=== PATIENT | male | born 1955 | race Caucasian/White ===

== ENCOUNTER 2017-01-01 10:19 | Inpatient (IN) | payer OTHER, MEDICAID ==
[~2017-01-01] VITALS: Ht 170.2 cm; Wt 65.3 kg
[~2017-01-01 10:19] MED LIST: ASPI-664 PO; CYCL-319 PO; METF-382 PO
[2017-01-01] MEDS ORDERED: NITROGLYCERIN 2% 1 GM OINT PKT TD STA (10:49)
[2017-01-01] MEDS ORDERED: GEMF600T60 PO (10:58)
[2017-01-01] MEDS ORDERED: ONDANSETRON 4 MG INJ IV STA (11:00)
[2017-01-01] MEDS ORDERED: NITROGLYCERIN (SL) 0.4 MG TAB SL PRN (11:00)
[2017-01-01] MEDS ORDERED: SOD CHLORIDE 0.9% 1,000 ML IV STA (11:00)
[2017-01-01] MEDS ORDERED: morphine 4 MG/ML VIAL IV STA (11:00)
[2017-01-01 11:23] LABS: BASOPHIL # 0.1 10^3/ul (0.0-0.1); BASOPHILS % 0.9 % (0.0-2.0); EOSINOPHILS # 0.3 10^3/ul (0.0-0.5); EOSINOPHILS % 3.6 % (0.0-7.0); HEMATOCRIT 46.2 % (42.0-52.0); HEMOGLOBIN 15.9 g/dl (14.0-18.0); LYMPHOCYTES # 2.7 10^3/ul (0.8-2.9); LYMPHOCYTES % 38.2 % (15.0-51.0); MEAN CORPUSCULAR HEMOGLOBIN 31.9 pg (29.0-33.0); MEAN CORPUSCULAR HGB CONC 34.4 g/dl (32.0-37.0); MEAN CORPUSCULAR VOLUME 92.6 fl (82.0-101.0); MEAN PLATELET VOLUME 9.5 fl (7.4-10.4); MONOCYTE # 0.5 10^3/ul (0.3-0.9); MONOCYTES % 7.3 % (0.0-11.0); NEUTROPHIL # 3.5 10^3/ul (1.6-7.5); NEUTROPHILS % 49.4 % (39.0-77.0); PLATELET COUNT 293 10^3/UL (140-415); RED BLOOD COUNT 4.99 10^6/ul (4.70-6.10); RED CELL DISTRIBUTION WIDTH 11.9 % (11.5-14.5)
[2017-01-01 11:30] LABS: CHLORIDE 102 mmol/L (97-110); INR 1.01; PROTIME 13.3 Sec (12.2-14.2); SODIUM 142 mmol/L (135-144)
[2017-01-01 11:31] LABS: POTASSIUM 4.2 mmol/L (3.5-5.1)
[2017-01-01 11:32] LABS: PARTIAL THROMBOPLASTIN TIME 31.5 Sec (25.0-35.0)
[2017-01-01 11:33] LABS: CREATININE 0.74 mg/dl (0.61-1.24)
[2017-01-01 11:34] LABS: ANION GAP 17 (8-16); BLOOD UREA NITROGEN 19 mg/dl (7-20); CALCIUM 9.6 mg/dl (8.4-10.2); CARBON DIOXIDE 27 mmol/L (21-31); GLUCOSE 104 mg/dl (70-220)
[2017-01-01 11:57] LABS: TROPONIN-I < 0.012 ng/ml (0.00-0.12)
--- NOTE | 2017-01-01 12:06 | RADRPT ---
PROCEDURE: XR Chest. CLINICAL INDICATION: Chest pain TECHNIQUE: Single frontal chest x-ray. COMPARISON: 07/07/2016 FINDINGS: No acute infiltrate, pleural effusion or pneumothorax is identified. Cardiomediastinal silhouette i s within normal limits. Aortic atherosclerotic calcification is noted. The osseous structures are remarkable for degenerative spondylosis of the spine. IMPRESSION: 1. No evidence of acute cardiopulmonary process. 2. Aortic atherosclerosis. RPTAT: QQ .Garrett Tim MD, MD Date Time Electronically viewed and signed by .Garrett Tim MD, MD on 01/01/2017 12:06 .R/
[2017-01-01] MEDS ORDERED: SOD CHLORIDE 0.9% 100 ML ONE (12:23)
[2017-01-01] MEDS ORDERED: IODIXANOL LOCM 100 ML BTL ONE (12:23)
[2017-01-01] MEDS ORDERED: IODIXANOL LOCM 50 ML BTL ONE (12:23)
--- NOTE | 2017-01-01 12:55 | RADRPT ---
PROCEDURE: CT angiogram of the chest with contrast. CLINICAL INDICATION: cp radiating to back, r/o dissection TECHNIQUE: CT scan of the chest with contrast was performed on a multidetector high-resolution CT scan. The patient was scanned following the uncomplicated intravenous administration of 115 ml of V isipaque 320. Coronal and sagittal reformatted images were obtained from the axial source images. [facility] chest with contrast protocols were performed. The total exam CTDI equals 13.43 mGy and the total exam DLP equals 514.61 mGy-cm. One or more of the following dose reduction techniques were used: - Automated exposure control. - Adjustment of the mA and/or kV according to patient size. Use of iterative reconstruction technique. COMPARISON: None. FINDINGS: There is mild atherosclerotic vascular disease of the aortic arch in mid to proximal abdominal aorta . No evidence of aortic dissection or aneurysm. There is mild atherosclerotic vascular disease of the proximal right subclavian artery and origin of the left common carotid artery. New the right le ft subclavian arteries are unremarkable. And proximal right and left vertebral arteries and brachia l cephalic artery are unremarkable. The central pulmonary arteries are unremarkable. There is no e vidence of central pulmonary emboli. The origin of the celiac axis and SMA are unremarkable. There is mild hard atherosclerotic plaque involving the proximal aspects of the right left renal arteries . No hemodynamically significant stenoses NASCET criteria. The heart is within normal limits in si ze without pericardial effusion. There is no evidence of pleural effusions or pneumothoraces. No e vidence of mediastinal hilar or axillary lymphadenopathy. There is mild dependent atelectasis. There is no evidence of acute lung infiltrates. No evidence of pulmonary nodules bilaterally. Imag es of the upper abdomen are unremarkable. The mild degenerative changes lower cervical and thoracic spine. IMPRESSION: 1. Atherosclerotic vascular disease as described above without evidence of aortic aneurysm or disse ction. No evidence of hemodynamically significant stenosis, NASCET criteria. 2. No central pulmonary emboli. 3. No evidence of thoracic effusions or acute infiltrates. 4. No evidence of thoracic lymphadenopathy. RPTAT:AAJJ B Ross, Physician Date Time Electronically viewed and signed by Zari Ross Physician on 01/01/2017 12:55 BM/
[2017-01-01] MEDS ORDERED: ONDANSETRON 4 MG INJ IV PRN (13:30)
--- NOTE | 2017-01-01 14:49 | ERA ---
ER Documentation Chief Complaint Date/Time DATE: 01/01/17 TIME: 14:47 Chief Complaint BIB RA FOR EVAL OF CP STARTED THIS AM. HPI Patient is a 61-year-old male with diabetes and hypertension who presents with chest pain. The patient said that he woke up today and was eating breakfast and had chest pain. He was brought in by ambulance. He had shortness of breath and palpitations as well. He had pain radiating to his back. He did see his network security consultant back in August. He was given 2 baby aspirin by paramedics. He had left-sided chest pain with radiation to his back. Upon review of old medical records this is the patient's seventh visit to the ER since 2007. ROS All systems reviewed and are negative except as per history of present illness. 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) Hx Respiratory Disorders: No Hx Cardiac Disorders: Yes (hypercholesterolemia) Hx Psychiatric Problems: Yes (ETOH abuse ) Hx Miscellaneous Medical Probl: Yes (CERVICAL STENOSIS, DM) Hx Alcohol Use: No Hx Substance Use: No Hx Tobacco Use: No Smoking Status: Former smoker FmHx Family History: No coronary disease Physical Exam Vitals Vital Signs Date Time Temp Pulse Resp B/P Pulse Ox O2 Delivery O2 Flow Rate FiO2 01/01/17 14:25 83 16 111/73 Room Air 01/01/17 13:00 98.6 84 20 118/79 98 01/01/17 11:20 98.6 87 18 147/98 96 01/01/17 10:45 Nasal Cannula 2 01/01/17 10:37 98.0 86 18 171/119 99 Physical Exam Const: No acute distress Head: Atraumatic Eyes: Normal Conjunctiva ENT: Normal External Ears, Nose and Mouth. Neck: Full range of motion..~ No meningismus. Resp: Clear to auscultation bilaterally Cardio: Regular rate and rhythm, no murmurs Abd: Soft, non tender, non distended. Normal bowel sounds Skin: No petechiae or rashes Back: No midline or flank tenderness Ext: No cyanosis, or edema Neur: Awake and alert Psych: Normal Mood and Affect Result Diagram: 01/01/17 1100 01/01/17 1100 Results 24 hrs Laboratory Tests Test 01/01/17 11:00 Activated Partial Thromboplast Time 31.5Sec Anion Gap 17 Basophils # 0.110^3/ul Basophils % 0.9% Blood Urea Nitrogen 19mg/dl Calcium Level 9.6mg/dl Carbon Dioxide Level 27mmol/L Chloride Level 102mmol/L Creatinine 0.74mg/dl Eosinophils # 0.310^3/ul Eosinophils % 3.6% Glucose Level 104mg/dl Hematocrit 46.2% Hemoglobin 15.9g/dl INR International Normalized Ratio 1.01 Lymphocytes # 2.710^3/ul Lymphocytes % 38.2% Mean Corpuscular Hemoglobin 31.9pg Mean Corpuscular Hemoglobin Concent 34.4g/dl Mean Corpuscular Volume 92.6fl Mean Platelet Volume 9.5fl Monocytes # 0.510^3/ul Monocytes % 7.3% Neutrophils # 3.510^3/ul Neutrophils % 49.4% Nucleated Red Blood Cells # 0.010^3/ul Nucleated Red Blood Cells % 0.0/100WBC Platelet Count 01494^3/UL Potassium Level 4.2mmol/L Prothrombin Time 13.3Sec Prothrombin Time Ratio 1.0 Red Blood Count 4.9910^6/ul Red Cell Distribution Width 11.9% Sodium Level 142mmol/L Troponin I < 0.012ng/ml White Blood Count 7.010^3/ul Current Medications Medications (Trade) Dose Ordered Sig/Jazmin Route PRN Reason Start Time Stop Time Status Last Admin Dose Admin Nitroglycerin (Nitroglycerin 2% Oint) 1 inch ONCE STAT TD 01/01/17 10:49 01/01/17 10:50 DC 01/01/17 11:03 Nitroglycerin 1 tab 1 tab Q5M UP TO 3 DOSES PRN SL CHEST PAIN 01/01/17 11:00 Sodium Chloride (NS) 1,000 ml @ 1,000 mls/hr Q1H STAT IV 01/01/17 11:00 01/01/17 11:59 DC 01/01/17 11:03 Morphine Sulfate (morphine) 4 mg ONCE STAT IV 01/01/17 11:00 01/01/17 11:01 DC Ondansetron HCl (Zofran Inj) 4 mg ONCE STAT IV 01/01/17 11:00 01/01/17 11:01 DC IV Flush 10 ml 10 ml STK-MED ONCE .ROUTE 01/01/17 12:23 01/01/17 12:24 DC Sodium Chloride (NS) 100 ml @ ud STK-MED ONCE .ROUTE 01/01/17 12:23 01/01/17 12:24 DC Iodixanol (Visipaque Locm) 100 ml STK-MED ONCE .ROUTE 01/01/17 12:23 01/01/17 12:24 DC Iodixanol (Visipaque Locm) 50 ml STK-MED ONCE .ROUTE 01/01/17 12:23 01/01/17 12:24 DC Ondansetron HCl (Zofran Inj) 4 mg ER BRIDGE PRN IV NAUSEA AND/OR VOMITING 01/01/17 13:30 01/02/17 13:29 Acetaminophen (Tylenol Tab) 650 mg ER BRIDGE PRN PO MILD PAIN/FEVER 01/01/17 13:30 01/02/17 13:29 Procedures/MDM EKG #1 read by me: Rate/Rhythm: Regular rate and rhythm at a normal rate Intervals: Normal Impression: No evidence of ischemia or arrhythmia EKG #[address] at this [address] CT chest negative for dissection or pulmonary embolism per radiology. Chest x- ray shows no pneumonia per radiology. Patient is a 61-year-old male with cardiac risk factors who presents with chest pain. At this point I doubt pulmonary embolism, aortic dissection, pneumonia, or pneumothorax. However I am concerned for acute coronary syndrome. I spoke with Dr. Bautista for admission to a telemetry bed as the patient has [employer] insurance and Dr. Bautista is admitting for [employer]. The patient already received aspirin by paramedics and will be given nitroglycerin and morphine in the emergency department. He was also given 1 L of normal saline for fluid resuscitation. Departure Diagnosis: Primary Impression: Chest pain Qualified Code: R07.9 - Chest pain, unspecified type Condition: STEPHNAIE Preston MD Jan 01, 2017 14:49
[2017-01-01] MEDS ORDERED: LORAZEPAM 0.5 MG TAB PO PRN (16:30)
[2017-01-01] MEDS ORDERED: ONDANSETRON 4 MG TAB PO PRN (16:30)
[2017-01-01] MEDS ORDERED: DOCUSATE SODIUM 100 MG CAP PO PRN (16:30)
[2017-01-01] MEDS ORDERED: NACL 0.9% 3 ML SYG IV SCH (16:30)
[2017-01-01] MEDS ORDERED: morphine 2 MG INJ IV PRN (16:30)
--- NOTE | 2017-01-01 16:38 | PN ---
Date/Time of Note Date/Time of Note DATE: 01/01/17 TIME: 16:30 Assessment/Plan VTE Prophylaxis VTE Prophylaxis Intervention: LMWH Lines/Catheters IV Catheter Type (from Nrs): Saline Lock Assessment/Plan Chief Complaint/Hosp Course ASSESSMENT AND PLAN: 1. Chest pain with a past medical history of diabetes mellitus, dyslipidemia. His first troponin was found to be negative. EKG does not show any sign of acute ischemia. No sign of ST elevation or depression. The patient has been placed on morphine, aspirin. His blood pressure is well controlled. Will follow up lipid panel. Will obtain 2D echocardiogram. 2. History of dyslipidemia. Follow lipid panel and treat accordingly. 3. Diabetes mellitus. Continue metformin, low-carbohydrate diet. 4. For deep venous thrombosis prophylaxis, on Lovenox. 5. For gastrointestinal prophylaxis, on proton pump inhibitor. Will continue to monitor patient closely. Further recommendations, management and treatment as per clinical course. Problems: Subjective 24 Hr Interval Summary Free Text/Dictation This is a 61-year-old gentleman past medical history of diabetes mellitus hypertension home presents develop respiratory emergency of having chest discomfort. The pain was in anterior chest area and occurred while he was eating breakfast. He called 911 and he was brought into the emergency room [facility] via EMS after he was treated with [id number] mg . He states that the chest pain was accompanied by shortness of breath and palpitation. The pain 8/10 was in the anterior chest radiating to his back which improved minimally status post aspirin treatment. Patient has been admitted to [facility] in the past and had a Lexiscan stress test which was negative for ischemia although he states that this pain very uncomfortable therefore he called 911 as brought into the emergency room. ROS: Const: Negative for fever, chills, weight gain or weight loss, fatigue, or diaphoresis Eyes : No pain discharge or redness or change in visual acuity ENT: No pain, sore throat, congestion, congestion, dysphagia or discharge Respiratory: No shortness of breath, cough, sputum, wheezing, or pleuritic pain Cardiovascular: Minimal chest pain, palpitation, PND, or edema GI : no change in appetite, abdominal pain, nausea, vomiting, diarrhea, constipation, or change in the color his stool Genitourinary: No dysuria, hematuria, flank pain , discharge or CVA tenderness Musculoskeletal: No joint pain, back pain, neck pain, restricted range of motion in neck or joints Skin: No rash, bruising or hives Neuro: No headache, dizziness, syncope, seizure, focal weakness Endocrine: No polyuria, polydipsia, temperature intolerance Psych: No hallucination, depression, anxiety or suicidal ideation Exam/Review of Systems Vital Signs Vitals Vital Signs Date Time Temp Pulse Resp B/P Pulse Ox O2 Delivery O2 Flow Rate FiO2 01/01/17 14:25 98.2 01/01/17 14:25 83 16 111/73 Room Air 01/01/17 13:00 98 01/01/17 10:45 2 Exam General: The patient is well-developed, Not in acute distress. HEENT: Atraumatic, normocephalic. The pupils are equal and round . Neck: Supple with full range of motion. Chest: Normal expansion of the thorax during inspiration Lungs: Clear to auscultation bilaterally Heart: Normal S1-S2, Regular rhythm and rate. Abdomen: Soft , nontender, nondistended , bowel sounds are present. Extremities: Normal to inspection, no edema no cyanosis Neurologic: Normal mental status,The patient is awake, alert and oriented . Results Result Diagram: 01/01/17 1100 01/01/17 1100 Results 24 hrs Laboratory Tests Test 01/01/17 11:00 Activated Partial Thromboplast Time 31.5 Anion Gap 17 H Basophils # 0.1 Basophils % 0.9 Blood Urea Nitrogen 19 Calcium Level 9.6 Carbon Dioxide Level 27 Chloride Level 102 Creatinine 0.74 Eosinophils # 0.3 Eosinophils % 3.6 Glucose Level 104 Hematocrit 46.2 Hemoglobin 15.9 INR International Normalized Ratio 1.01 Lymphocytes # 2.7 Lymphocytes % 38.2 Mean Corpuscular Hemoglobin 31.9 Mean Corpuscular Hemoglobin Concent 34.4 Mean Corpuscular Volume 92.6 Mean Platelet Volume 9.5 # Monocytes # 0.5 Monocytes % 7.3 Neutrophils # 3.5 Neutrophils % 49.4 Nucleated Red Blood Cells # 0.0 Nucleated Red Blood Cells % 0.0 Platelet Count 293 Potassium Level 4.2 Prothrombin Time 13.3 Prothrombin Time Ratio 1.0 Red Blood Count 4.99 Red Cell Distribution Width 11.9 Sodium Level 142 Troponin I < 0.012 White Blood Count 7.0 # ANNA BAUTISTA MD Jan 01, 2017 16:38
[2017-01-01 17:56] LABS: CREATINE KINASE 25 IU/L (23-200)
[2017-01-01] MEDS: metFORMIN 500 MG TAB PO SCH (18:00)
[2017-01-01 18:09] LABS: CK-MB 0.44 ng/ml (0.0-2.4); TROPONIN-I < 0.012 ng/ml (0.00-0.12)
--- NOTE | 2017-01-01 18:28 | CONS ---
Date/Time of Note Date/Time of Note DATE: 01/01/17 TIME: 18:23 Assessment/Plan Assessment/Plan Additional Assessment/Plan Back and chest pain Diabetes Preserved ejection fraction Normal cardiac perfusion study June 2016 Spinal stenosis -Patient's pain began in his left back and radiated to the chest. Pain is worse with movements and bending. Initial cardiac enzymes are negative, ECG without significant ischemic abnormalities. Patient with normal cardiac perfusion study June 2016 as well as preserved ejection fraction on echocardiogram at that time. His symptoms appear atypical for cardiac origin. Given risk factors, would obtain serial cardiac enzymes. Otherwise if remains negative, would evaluate other noncardiac causes of patient's pain. Consultation Date/Type/Reason Admit Date/Time Type of Consultation: cv Reason for Consultation Chest pain Hx of Present Illness This is a 61-year-old male with history of hypertension, diabetes, spinal stenosis who presents with back, left-sided chest pain. Patient was eating breakfast this morning, and stood up and turned around. After he did this, he developed severe left lower and mid back pain which radiated to the chest. Pain was aching and sharp in nature. Pain was so severe he became short of breath. Pain was worse with moving side to side. Because of the above, patient came to the emergency room for evaluation and care. His pain has improved but is worse when going from lying down to seated up position in the back. He denies any further chest pain. He denies exertional chest pain, shortness of breath. His activity is limited secondary to his spinal stenosis. 12 point review of systems was performed with all pertinent positives and negatives mentioned above and all else is negative Past Medical History Spinal stenosis Medical History: diabetes, hypertension Social History Smoking Status: Former smoker Exam/Review of Systems Vital Signs Vitals Vital Signs Date Time Temp Pulse Resp B/P Pulse Ox O2 Delivery O2 Flow Rate FiO2 01/01/17 14:25 98.2 01/01/17 14:25 83 16 111/73 Room Air 01/01/17 13:00 98 01/01/17 10:45 2 Exam No apparent distress Constitutional: alert, oriented Head: normocephalic Respiratory: clear to auscultation, normal air movement Cardiovascular: other (S1-S2 heard, no murmurs appreciated), regular rate and rhythm Gastrointestinal: bowel sounds, non-tender, other (No guarding), soft Musculoskeletal: other (Pain with palpation left paraspinal muscles and left flank area and anterior left chest) Extremities: other (No edema) Results Result Diagram: 01/01/17 1100 01/01/17 1100 Results 24 hrs Laboratory Tests Test 01/01/17 11:00 01/01/17 16:55 Activated Partial Thromboplast Time 31.5 Anion Gap 17 H Basophils # 0.1 Basophils % 0.9 Blood Urea Nitrogen 19 Calcium Level 9.6 Carbon Dioxide Level 27 Chloride Level 102 Creatinine 0.74 Eosinophils # 0.3 Eosinophils % 3.6 Glucose Level 104 Hematocrit 46.2 Hemoglobin 15.9 INR International Normalized Ratio 1.01 Lymphocytes # 2.7 Lymphocytes % 38.2 Mean Corpuscular Hemoglobin 31.9 Mean Corpuscular Hemoglobin Concent 34.4 Mean Corpuscular Volume 92.6 Mean Platelet Volume 9.5 # Monocytes # 0.5 Monocytes % 7.3 Neutrophils # 3.5 Neutrophils % 49.4 Nucleated Red Blood Cells # 0.0 Nucleated Red Blood Cells % 0.0 Platelet Count 293 Potassium Level 4.2 Prothrombin Time 13.3 Prothrombin Time Ratio 1.0 Red Blood Count 4.99 Red Cell Distribution Width 11.9 Sodium Level 142 Troponin I < 0.012 < 0.012 White Blood Count 7.0 # Creatine Kinase 25 Creatine Kinase Index 1.8 Creatinine Kinase MB (Mass) 0.44 Medications Medications Current Medications Lorazepam (Ativan) 0.5 mg Q8H PRN PO ANXIETY; Start 01/01/17 at 16:30 Ondansetron HCl (Zofran Tab) 4 mg Q6H PRN PO NAUSEA AND/OR VOMITING; Start 01/01 at 16:30 Aspirin (Aspirin) 81 mg DAILY PO ; Start 01/02/17 at 09:00 Morphine Sulfate (morphine) 2 mg Q4H PRN IV PAIN LEVEL 7-10; Start 01/01/17 at 16:30 Docusate Sodium (Colace) 100 mg Q12H PRN PO CONSTIPATION; Start 01/01/17 at 16: 30 Pantoprazole (Protonix Tab) 40 mg DAILY@06 PO ; Start 01/02/17 at 06:00 Enoxaparin Sodium (Lovenox) 40 mg DAILY SC ; Start 01/02/17 at 09:00 Gemfibrozil (Lopid) 600 mg BID PO ; Start 01/01/17 at 21:00 Procedures Procedures ECG demonstrates sinus rhythm at 86 bpm, QRS 84 ms, nonspecific STT wave abnormalities Sameer Ely DO Jan 01, 2017 18:28
[2017-01-01 20:00] VITALS: TEMP 98.9
[2017-01-01] MEDS: GEMFIBROZIL 600 MG TAB PO SCH (21:00)
[2017-01-01 21:37] VITALS: PULSE 67
[2017-01-01 22:38] VITALS: Ht 170.2 cm; Wt 65.3 kg
[2017-01-02] VITALS (10 sets, daily range): BP systolic 112–130; BP diastolic 69–85; PULSE 54–64; RESP 18–20
[2017-01-02] MEDS: ACETAMINOPHEN 325 MG TAB PO PRN ×2 (00:02→11:00)
[2017-01-02 00:25] LABS: CREATINE KINASE 21 IU/L (23-200)
[2017-01-02 00:38] LABS: CK-MB 0.48 ng/ml (0.0-2.4); TROPONIN-I < 0.012 ng/ml (0.00-0.12)
[2017-01-02] MEDS ORDERED: PANTOPRAZOLE (EC) 40 MG TAB PO SCH (06:00)
[2017-01-02] MEDS: metFORMIN 500 MG TAB PO SCH ×2 (08:00→15:18)
[2017-01-02] MEDS: GEMFIBROZIL 600 MG TAB PO SCH ×2 (08:15→16:37)
[2017-01-02] MEDS ORDERED: ENOXAPARIN 40 MG/0.4 ML SYG SC SCH (09:00)
[2017-01-02] MEDS ORDERED: ASPIRIN 81 MG TAB PO SCH (09:00)
[2017-01-02 09:52] LABS: ADD SCAN DIFF NO
[2017-01-02 09:54] LABS: BASOPHIL # 0.1 10^3/ul (0.0-0.1); BASOPHILS % 0.7 % (0.0-2.0); EOSINOPHILS # 0.3 10^3/ul (0.0-0.5); EOSINOPHILS % 3.4 % (0.0-7.0); HEMATOCRIT 45.2 % (42.0-52.0); HEMOGLOBIN 15.2 g/dl (14.0-18.0); LYMPHOCYTES # 2.9 10^3/ul (0.8-2.9); LYMPHOCYTES % 34.1 % (15.0-51.0); MEAN CORPUSCULAR HEMOGLOBIN 31.9 pg (29.0-33.0); MEAN CORPUSCULAR HGB CONC 33.6 g/dl (32.0-37.0); MEAN CORPUSCULAR VOLUME 94.8 fl (82.0-101.0); MEAN PLATELET VOLUME 9.2 fl (7.4-10.4); MONOCYTE # 0.6 10^3/ul (0.3-0.9); MONOCYTES % 7.3 % (0.0-11.0); NEUTROPHIL # 4.5 10^3/ul (1.6-7.5); NEUTROPHILS % 54.1 % (39.0-77.0); PLATELET COUNT 251 10^3/UL (140-415); RED BLOOD COUNT 4.77 10^6/ul (4.70-6.10); RED CELL DISTRIBUTION WIDTH 12.1 % (11.5-14.5); WHITE BLOOD COUNT 8.4 10^3/ul (4.8-10.8)
[2017-01-02 10:07] LABS: POTASSIUM 4.1 mmol/L (3.5-5.1)
[2017-01-02 10:09] LABS: CREATININE 0.72 mg/dl (0.61-1.24)
[2017-01-02 10:10] LABS: CALCIUM 9.2 mg/dl (8.4-10.2); MAGNESIUM 2.1 mg/dl (1.7-2.5)
[2017-01-02 11:09] LABS: CHOL/HDL RATIO 4.7 RATIO
--- NOTE | 2017-01-02 11:15 | CONS ---
Date/Time of Note Date/Time of Note DATE: 01/02/17 TIME: 11:14 Assessment/Plan Assessment/Plan Additional Assessment/Plan Back and chest pain Diabetes Preserved ejection fraction Normal cardiac perfusion study June 2016 Spinal stenosis -Serial cardiac enzymes have remained negative. Patient's symptoms are positional and worse with bending and moving side to side and improved with using a heat pad. CT pulmonary angiogram negative for PE. Would evaluate other causes for patient's symptoms. No further inpatient cardiac workup needed at the current time. Consultation Date/Type/Reason Admit Date/Time Jan 01, 2017 at 13:14 Initial Consult Date Type of Consultation: cv 24 HR Interval Summary Free Text/Dictation Patient still with left lower back pain, worse with bending and moving side to side. Denies shortness of breath or chest pain Exam/Review of Systems Vital Signs Vitals Vital Signs Date Time Temp Pulse Resp B/P Pulse Ox O2 Delivery O2 Flow Rate FiO2 01/02/17 08:09 58 01/02/17 07:58 97.9 19 122/77 98 01/01/17 20:00 Room Air 01/01/17 10:45 2 Intake and Output 01/01/17 01/01/17 01/02/17 15:00 23:00 07:00 Intake Total 200 ml Output Total 1100 ml Balance -1100 ml 200 ml Exam No apparent distress Constitutional: alert, oriented Head: normocephalic Neck: supple Respiratory: other (Coarse breath sounds bilaterally, no wheezing) Cardiovascular: other (S1-S2 heard), regular rate and rhythm Gastrointestinal: bowel sounds, non-tender, soft Extremities: other (No edema) Results Result Diagram: 01/02/1745 01/02/17 0945 Results 24 hrs Laboratory Tests Test 01/01/17 16:55 01/01/17 22:45 01/02/17 01:37 01/02/17 09:45 Creatine Kinase 25 21 L Creatine Kinase Index 1.8 2.3 Creatinine Kinase MB (Mass) 0.44 0.48 Troponin I < 0.012 < 0.012 Bedside Glucose 95 Anion Gap 16 Basophils # 0.1 Basophils % 0.7 Blood Urea Nitrogen 17 Calcium Level 9.2 Carbon Dioxide Level 28 Chloride Level 103 Cholesterol Level 124 Cholesterol/HDL Ratio 4.7 Creatinine 0.72 Eosinophils # 0.3 Eosinophils % 3.4 Glucose Level 133 HDL Cholesterol 26 L Hematocrit 45.2 Hemoglobin 15.2 LDL Cholesterol, Calculated 55 Lymphocytes # 2.9 Lymphocytes % 34.1 Magnesium Level 2.1 Mean Corpuscular Hemoglobin 31.9 Mean Corpuscular Hemoglobin Concent 33.6 Mean Corpuscular Volume 94.8 Mean Platelet Volume 9.2 Monocytes # 0.6 Monocytes % 7.3 Neutrophils # 4.5 Neutrophils % 54.1 Nucleated Red Blood Cells # 0.0 Nucleated Red Blood Cells % 0.0 Platelet Count 251 Potassium Level 4.1 Red Blood Count 4.77 Red Cell Distribution Width 12.1 Sodium Level 143 Thyroid Stimulating Hormone (TSH) Pending Triglycerides Level 217 H White Blood Count 8.4 Medications Medications Current Medications Lorazepam (Ativan) 0.5 mg Q8H PRN PO ANXIETY; Start 01/01/17 at 16:30 Ondansetron HCl (Zofran Tab) 4 mg Q6H PRN PO NAUSEA AND/OR VOMITING; Start 01/01 at 16:30 Aspirin (Aspirin) 81 mg DAILY PO Last administered on 01/02/17 08:14; Admin Dose 81 MG; Start 01/02/17 at 09:00 Morphine Sulfate (morphine) 2 mg Q4H PRN IV PAIN LEVEL 7-10; Start 01/01/17 at 16:30 Docusate Sodium (Colace) 100 mg Q12H PRN PO CONSTIPATION; Start 01/01/17 at 16: 30 Pantoprazole (Protonix Tab) 40 mg DAILY@06 PO Last administered on 01/02/17 06 :25; Admin Dose 40 MG; Start 01/02/17 at 06:00 Enoxaparin Sodium (Lovenox) 40 mg DAILY SC ; Start 01/02/17 at 09:00 Gemfibrozil (Lopid) 600 mg BID PO Last administered on 01/02/17 08:15; Admin Dose 600 MG; Start 01/01/17 at 21:00 Sameer Ely DO Jan 02, 2017 11:15
[2017-01-02 13:23] LABS: THYROID STIMULATING HORMONE 4.89 MIU/L (0.465-4.680)
--- NOTE | 2017-01-02 16:50 | PDOCDIS ---
Discharge Instructions CONDITION Patient Condition: Good HOME CARE INSTRUCTIONS: Special Diet: cardiac ACTIVITY: Activity Restrictions: No Restrictions FOLLOW UP/APPOINTMENTS Appointments follow up with PCP as out-pt OTHER ORDERS: Other Orders: ANNA Cruz MD Jan 02, 2017 16:50
[2017-01-02] MEDS ORDERED: CYCL5TAB PO (16:51)
[2017-01-02] MEDS ORDERED: IBUP200C PO (16:51)
--- NOTE | 2017-01-03 11:05 | DS ---
DATE OF ADMISSION: 01/01/2017 DATE OF DISCHARGE: 01/02/2017 CONSULTANTS: Cardiology. PROCEDURES: None. NOTATION: The patient had a CTA angiogram of the chest with contrast which showed atherosclerotic va scular disease, without evidence of aortic aneurysm or dissection. No evidence of hemodynamically s ignificant stenosis. No central pulmonary emboli. No evidence of thoracic effusion or acute infilt rate. No evidence of thoracic lymphadenopathy. On 07/08/2016 the patient had a Cardiolite Lexiscan myocardial perfusion study, which showed no evidence of stress-induced ischemia, no wall motion abn ormalities, ejection fraction of 67%. DISCHARGE DIAGNOSES: 1. Atypical chest pain. Acute coronary syndrome was ruled out with negative troponins. Continue a spirin and Gemfibrozil. The patient's lipid panel is stable, with a LDL of 55, HDL of 26. Serial tr oponins were found to be negative. Cardiology was consulted. 2. Dyslipidemia. Well controlled on gemfibrozil. 3. Hypertriglyceridemia. Continue gemfibrozil. 4. Costochondritis. Will discharge on cyclobenzaprine and ibuprofen. 5. Diabetes mellitus. Continue metformin. MEDICATIONS: 1. Aspirin 81 mg. 2. Flexeril 5 mg p.o. t.i.d. for 5 days. 3. Gemfibrozil 600 mg. 4. Ibuprofen 400 mg p.o. q.6h. 6. Metformin 500 mg p.o. daily. ALLERGIES: NO KNOWN DRUG ALLERGIES. LABORATORY: Sodium 143, potassium 4.1, chloride 103, bicarbonate 28, BUN 17, creatinine 0.72, gluco se 133, calcium 9.2, magnesium 2.1, serial troponins negative x3. Triglycerides 217, total cholester ol 124, LDL 55, HDL 26. WBC 8.4, hemoglobin 15.3, hematocrit 45.2, platelets 251, TSH 4.890. DISPOSITION: Home. FOLLOWUP: Follow up with primary care physician in 1 week. HOSPITAL COURSE: This is a 61-year-old gentleman with a past medical history of diabetes mellitus, hypertension, and hypertriglyceridemia who has been having upper back pain and left-sided shoulder p ain which has been radiating to his front for the past several weeks. He had been admitted to [facility] in June of 2016 and had a negative stress test. The patient complained of having acute chest discomfort and back pain, and therefore called 911 and was brought into the [facility] room. Serial troponins were found to be negative. EKG showed no acute ischemia, no ST elevati on or depression. He was continued on aspirin. Cardiology was consulted. 2D echocardiogram showe d a normal ejection fraction. He was seen and evaluated by cardiology. Upon evaluation and thorough examination the patient's pain was reproducible when he was palpated on his posterior thorax muscle s, and he was placed on a heat pack, which his pain has improved significantly. He was also put on pain medication. His serial troponin, as stated above, was found to be negative. The patient at th is time from a medical standpoint and a cardiology standpoint has been cleared for discharge. The p ain is costochondritis. He has been recommended to follow up with his primary care physician and place a heat pad and pain medication should be initiated also. In regards to his hypertriglycer idemia, he should continue his gemfibrozil. His diabetes mellitus is well controlled on metformin. At this time the patient is medically stable to be discharged home, with close followup with his [facility] physician as an outpatient. DIET: Cardiac, low carb diet. ACTIVITY: As tolerated. Dictated By: ANNA CH/AMVIS Conf#: [id number] DID#: [id number]
== END 2017-01-02 18:37 | disposition home or self-care (01) | DRG 206 ==
LOC: E/R 10:19 → MS4 13:14
PROVIDERS: ADMIT Family Medicine; ATTEND Family Medicine
DX: M94.0 Chondrocostal junction syndrome [Tietze] (principal); E11.9 Type 2 diabetes mellitus without complications; R07.89 Other chest pain; E78.5 Hyperlipidemia, unspecified; E78.1 Pure hyperglyceridemia
CPT/HCPCS: 36415; 71010; 71275; 80048; 80061; 82550; 82553; 82962; 83735; 84443; 84484; 85025; 85610; 85730; 93005; J1650; J7030; Q9967

== ENCOUNTER 2018-08-14 17:32 | Emergency (ER) | END 2018-08-14 19:55 | disposition home or self-care (01) ==